=== PATIENT | female | born 1985 | race Caucasian/White ===

== ENCOUNTER 2019-07-24 13:01 | Outpatient (CLI) | payer BC ==
[~2019-07-24 13:01] MED LIST: ISOVUE-370 76%-LOCM 1 ML ONE
--- NOTE | 2019-07-24 14:31 | ULT ---
US Pelvic Transvag W Doppler History: Amenorrhea Comparison: None Findings: Uterus is retroverted. Small volume free fluid in the pelvic cul-de-sac. Uterus measures 6.3 x 3.7 x 3.5 cm. Endometrial thickness is 3 mm. Right ovary measures 3.2 x 2.8 x 1.8 cm and left ovary measures 3.2 x 2.1 x 1.8 cm. Adequate vascular flow to both ovaries. Posterior uterine body fibroid measuring up to 1.7 cm. Impression: Small posterior uterine body fibroid measured 1.7 cm. No peripheralization of follicles o r abnormal enlargement of the ovaries.
--- NOTE | 2019-07-24 14:35 | CT ---
CT Abdomen W WO Con History: Amenorrhea. Elevated testosterone. Comparison: None Findings: Lung bases are clear. No pericardial effusion. Mild hepatic steatosis. Spleen, pancreas, adrenal glands are unremarkable. No hydronephrosis. No dila grady loops of large or small bowel the abdomen. No abnormal liver enhancing mass. Gallbladder is unremarkable. Mild S-shaped scoliosis thoracolumbar spine. No retroperitoneal perinephric adenopathy. No filling defects in the renal calyces, pelvi, nor proxim al ureters. Impression: Mild diffuse hepatic steatosis otherwise unremarkable examination of the abdomen.
== END 2019-07-24 13:02 | disposition home or self-care (01) ==
LOC: BICCT 13:01
PROVIDERS: ATTEND Family Medicine
DX: N91.2 Amenorrhea, unspecified (principal); E28.1 Androgen excess; K76.0 Fatty (change of) liver, not elsewhere classified; D25.9 Leiomyoma of uterus, unspecified
CPT/HCPCS: 74170; 76856; Q9966

== ENCOUNTER 2020-05-16 13:51 | Outpatient (CLI) | payer BC ==
--- NOTE | 2020-05-16 14:43 | ULT ---
US Thyroid STANDARD History: Thyroid nodules Comparison: Thyroid ultrasound from a 2016 Findings: Real-time grayscale evaluation a was performed. No significant interval size increase of the bilateral thyroid nodules. Large solid cystic nodule in the right lobe is similar given differences in measuring location. The 2 solid nodules in the left lobe also similar and some contain microcalcifications. Impression: No significant change in the bilateral thyroid nodules.
== END 2020-05-16 13:52 | disposition home or self-care (01) ==
LOC: SCSULT 13:51
PROVIDERS: ATTEND Family Medicine
DX: E04.2 Nontoxic multinodular goiter (principal)
CPT/HCPCS: 76536